=== PATIENT | female | born 1950 | race Caucasian/White ===

== ENCOUNTER 2016-07-06 16:10 | Emergency (ER) | payer MEDICARE, OTHER ==
--- NOTE | 2016-07-06 16:31 | ED Physician Documentation ---
Upper Respiratory Symptoms - HISTORIAN Historian: patient - HPI Stated Complaint: Cough/Congestion Chief Complaint: Cough/ Upper Respiratory Onset: days ago (4 days) Duration: constant Associated Symptoms: runny nose. denies: fever, chills, sore throat Worsened by Deep Breath: Yes - ROS CONST/EYES: denies: weakness GI/: nausea, diarrhea (off and on). denies: problems urinating, vomiting - PAST HX Lung Disease: other (sleep apnea) PE Risk Factors: none Allergies/Adverse Reactions: Allergies Allergy/AdvReac Type Severity Reaction Status Date / Time Sulfa (Sulfonamide Allergy Verified 07/06/16 16:20 Antibiotics) Home Medications: Ambulatory Orders Medication Instructions Recorded Amoxicillin/Potassium Clav 1 each PO BID #20 tablet 07/06/16 [Augmentin 875-125 Tablet] Letrozole [Femara] 2.5 mg PO D 07/06/16 Lisinopril/Hydrochlorothiazide 1 tab PO D 07/06/16 [Zestoretic] - SOCIAL HX Smoking History: non-smoker Alcohol Use: none Drug Use: none - FAMILY HX Family History: no significant history - VITAL SIGNS Vital Signs: Vital Signs Temp Pulse Resp BP Pulse Ox 98 F 88 24 172/78 94 07/06/16 16:10 07/06/16 16:10 07/06/16 16:10 07/06/16 16:10 07/06/16 16:10 - REVIEWED ASSESSMENTS Nursing Assessment Reviewed: Yes Vitals Reviewed: Yes Progress - Progress Progress: 18:00 Post breathing treatment was moving air better and felt less SOB ED Results Lab/Radiology - Lab Results Lab Results: Lab Results 07/06/16 07/06/16 17:11 17:11 WBC 5.00 K/ul K/ul (4.00-12.00) RBC 3.96 M/ul M/ul (3.90-5.20) Hgb 12.1 g/dL g/dL (12.0-16.0) Hct 37.5 % % (34.5-46.5) MCV 94.6 fl fl (80.0-100.0) MCH 30.5 pg pg (28.0-34.0) MCHC 32.2 g/dL g/dL (30.0-36.0) RDW 14.6 % H % (11.3-14.3) Plt Count 132 K/mm3 K/mm3 (130-400) Neut % (Auto) 75.7 % % (39.0-79.0) Lymph % (Auto) 10.5 % L % (16.0-50.0) [place] % (Auto) 5.8 % % (0.0-11.0) Eos % (Auto) 4.9 % % (0.0-6.8) Baso % (Auto) 0.4 (0.0-1.5) Neut # 3.8 # k/uL # k/uL (1.4-7.7) Lymph # 0.5 # k/uL L # k/uL (0.6-4.0) [place] # 0.3 # k/uL # k/uL (0.0-0.9) Eos # 0.2 # k/uL # k/uL (0.0-0.6) Baso # 0.0 # k/uL # k/uL (0.0-0.5) Reactive Lymphs % 2.8 % % (0.0-5.0) Reactive Lymphs # 0.1 # k/uL # k/uL (0.0-0.8) Sodium 140 mmol/L mmol/L (136-145) Potassium 4.4 mmol/L mmol/L (3.5-5.0) Chloride 102 mmol/L mmol/L (98-110) Carbon Dioxide 34 mmol/L H mmol/L (20-32) BUN 17 mg/dL mg/dL (10-26) Creatinine 0.5 mg/dL mg/dL (0.4-1.5) Estimated Creat Clear 257 Est GFR ( Amer) > 60 (60 - ) Est GFR (Non-Af Amer) > 60 (60 - ) Glucose 96 mg/dL mg/dL (70-99) Calcium 11.2 mg/dL H mg/dL (8.5-10.5) Total Bilirubin 0.4 mg/dL mg/dL (0.2-1.2) AST 28 U/L U/L (0-41) ALT 31 U/L U/L (0-45) Alkaline Phosphatase 69 U/L U/L (46-116) Total Protein 6.9 g/dL g/dL (6.0-8.5) Albumin 4.5 g/dL g/dL (3.0-5.5) - Radiology Radiology Impressions: CXR: no acute findings, no infiltrates noted. - Orders Orders: ED Orders Category Date Time Status Place Saline Lock/IV Now Care 07/06/16 16:41 Inactive CHEST P.A.&LAT 2 VIEWS [RAD] Routine Exams 07/06/16 Completed CBC/PLATELET/DIFF Routine Lab 07/06/16 17:11 Completed CMP Routine Lab 07/06/16 17:11 Completed Ipratropium/Albuterol Sulfate [Duoneb] Med 07/06/16 17:48 Discontinued 3 ml NEB .STK-MED ONE Ipratropium/Albuterol Sulfate [Duoneb] Med 07/06/16 17:47 Discontinued 3 ml NEB NOW ONE Upper Respiratory Symptoms - EXAM General Appearance: no acute distress, alert EENT: eyes nml inspection, nml ENT inspection, nose nml. No: pharyngeal erythema Neck: normal inspection, thyroid normal, supple. No: lymphadenopathy, stiff neck Respiratory: no resp. distress, speaks full sentences, rales (R>L), rhonchi ( few on the right middle) CVS: reg rate & rhythm, heart sounds normal, equal pulses, no murmur Skin: color nml, no rash, warm,dry, cyanosis Neuro/Psych: oriented x3, neuro intact, mood/affect nml Discharge Clincal Impression: Bronchitis Referrals: Keyona Egan FNP [Primary Care Provider] - 2 Days Additional Instructions: Take the Augmentin as directed, take with food. Do nebulized treatment every 4- 6 hours as needed. Watch for fever or chills. If you continue to have problems to return to your primary care provider or to the ED. Home Medications: Ambulatory Orders Amoxicillin/Potassium Clav [Augmentin 875-125 Tablet] 1 each PO BID #20 tablet 07/06/16 Letrozole [Femara] 2.5 mg PO D 07/06/16 Lisinopril/Hydrochlorothiazide [Zestoretic] 1 tab PO D 07/06/16 Condition: Stable Disposition: 01 HOME, SELF-CARE Decision to Admit: NO Date of Decison to Admit: 07/06/16 Decision Time: 17:45
[2016-07-06 17:19] LABS: BASOPHILS % 0.4 (0.0-1.5); EOSINOPHILS % 4.9 % (0.0-6.8); LYMPHOCYTES # 0.5 # k/uL (0.6-4.0); MEAN CORPUSCULAR HEMOGLOBIN 30.5 pg (28.0-34.0); MONOCYTES # 0.3 # k/uL (0.0-0.9); MONOCYTES % 5.8 % (0.0-11.0); NEUTROPHILS # 3.8 # k/uL (1.4-7.7)
[2016-07-06 17:31] LABS: eGFR (African) > 60; eGFR (Non-African) > 60
--- NOTE | 2016-07-06 17:41 | Diagnostic Imaging Report ---
CELIA CRUZ~ [facility] [address] [facility] [address] [place] [address]. 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 Aortic atherosclerosis is present. There is no infiltrate or pleural effusion. Impression: Breast implants and upper normal heart size. ~ Electronically signed on Jul 06, 2016 5:34:25 PM ENGRAVING PRESS OPERATOR by: Todd MIRANDA
[2016-07-06] MEDS ORDERED: IPRATROPIUM/ALBUTEROL SULFATE 3 ML AMPUL.NEB NEB ONE ×2 (17:47→17:48)
[2016-07-06] MEDS ORDERED: methylPREDNISolone SOD SUCC 125 MG/2 ML VIAL IM ONE (18:04)
[2016-07-06 18:30] VITALS: BP 167/93
== END 2016-07-06 18:20 | disposition home or self-care (01) ==
LOC: ED 16:10
DX: J20.9 Acute bronchitis, unspecified (principal)
CPT/HCPCS: 71020; 80053; 85025; J2930; 99283

== ENCOUNTER 2019-03-20 11:07 | Emergency (ER) | payer MEDICARE, OTHER ==
[2019-03-20] MEDS: IPRATROPIUM/ALBUTEROL SULFATE 3 ML AMPUL.NEB NEB ONE (11:35)
[2019-03-20 11:40] VITALS: BP 115/77
--- NOTE | 2019-03-20 11:56 | Diagnostic Imaging Report ---
PATIENT MR#: [id number] PATIENT PATIENT NAME: SHAHRIAR MONTGOMERY DATE OF : 1950 REFERRING PHYSICIAN: Dina Barfield EXAM DATE: 03/20/2019 ACCESSION NUMBER: [id number] EXAM DESCRIPTION: CHEST 2VIEW Exam: Chest two views. History: Cough. The examination is compared to study dated April 05, 2018. Lung benitez are well aerated. Right perihilar and right lower lobe infiltrates are noted. No pleura l effusions are seen. Heart size is stable with atherosclerotic plaques seen in the aorta. Degenerative changes in the thoracic spine are noted. Impression: Right perihilar and right lower lobe infiltrates. Read by: Dr. René Ashton Transcribed by: Transcribed Date: Electronically signed by: Dr. René Ashton Date signed: 03/20/2019 11:55:36 AM
--- NOTE | 2019-03-20 11:59 | ED Physician Documentation ---
Upper Respiratory Symptoms - HISTORIAN Historian: patient - HPI Stated Complaint: SOB Chief Complaint: Cough/ Upper Respiratory Additional Information: 68 year old female presents with to ER. Patient c/o cough, congestion, SOA, and wheezing that started a week ago yesterday. She was seen 6 days ago at Urgent care and started on Augmentin. She has been doing as instructed but states that symptoms are getting worse. She was having a lot of trouble breathing last night. states that he can hear her wheezing. She has a nebulizer at home but has not really been using it. Discussed using nebulizer every 4 hours x 24 hours. Onset: days ago ( 1 week ago) Duration: constant Context: denies: recent foreign travel Severity: moderate Associated Symptoms: sinus drainage, productive cough, shortness of breath Worsened by Deep Breath: Yes - ROS CONST/EYES: denies: weakness CVS/RESP: shortness of breath LYMPH: denies: leg swelling, swollen glands GI/: none NEURO/PSYCH: denies: dizziness MS/SKIN: denies: joint pain - PAST HX Lung Disease: asthma PE Risk Factors: hypertension Immunizations: UTD Allergies/Adverse Reactions: Allergies Allergy/AdvReac Type Severity Reaction Status Date / Time Sulfa (Sulfonamide Allergy Verified 03/20/19 11:47 Antibiotics) Home Medications: Ambulatory Orders Medication Instructions Recorded Letrozole [Femara] 2.5 mg PO D 07/06/16 Lisinopril/Hydrochlorothiazide 1 tab PO D 07/06/16 [Zestoretic] Meloxicam 15 mg PO D 04/05/18 Albuterol Sulfate [Albuterol 1 - 2 puff IH Q4H PRN #1 hfa.aer.ad 03/20/19 Sulfate Hfa] Ipratropium/Albuterol Sulfate 3 ml NEB Q4H #1 b 03/20/19 [Duoneb] LevoFLOXacin [Levaquin] 500 mg PO DAILY #10 tablet 03/20/19 predniSONE [Deltasone] 40 mg PO DAILY #10 tablet 03/20/19 - SOCIAL HX Smoking History: non-smoker Alcohol Use: none Drug Use: none - FAMILY HX Family History: none - VITAL SIGNS Vital Signs: Vital Signs Temp Pulse Resp BP Pulse Ox 97.4 F L 58 L 20 115/77 95 03/20/19 11:07 03/20/19 11:07 03/20/19 11:07 03/20/19 11:07 03/20/19 11:07 - REVIEWED ASSESSMENTS Nursing Assessment Reviewed: Yes Vitals Reviewed: Yes Progress - Progress Progress: Patient sounds much better after breathing treatment; still some wheezing noted. ED Results Lab/Radiology - Radiology Radiology Impressions: Exam: Chest two views. History: Cough. The examination is compared to study dated April 05, 2018. Lung benitez are well aerated. Right perihilar and right lower lobe infiltrates are noted. No pleural effusions are seen. Heart size is stable with atherosclerotic plaques seen in the aorta. Degenerative changes in the thoracic spine are noted. Impression: Right perihilar and right lower lobe infiltrates. Electronically signed on Mar 20, 2019 11:52:47 AM OPTICAL MANUFACTURING TECHNICIAN by: René Herrera - Orders Orders: ED Orders Category Date Time Status CHEST 2VIEW [RAD] Stat Exams 03/20/19 Completed Ipratropium/Albuterol Sulfate [Duoneb] Med 03/20/19 11:26 Discontinued 3 ml NEB NOW ONE Upper Respiratory Symptoms - EXAM General Appearance: alert, mild distress EENT: eyes nml inspection, nml ENT inspection, lids & conjunct. nml, PERRL Neck: normal inspection, supple Respiratory: wheezes, rhonchi Abdomen: non-tender, nml bowel sounds CVS: heart sounds normal, equal pulses Skin: color nml, no rash, warm,dry Extremities: normal range of motion Neuro/Psych: oriented x3, neuro intact, mood/affect nml Discharge Clincal Impression: Right lower lobe pulmonary infiltrate Referrals: Keyona Egan FNP [Primary Care Provider] - 2 Days Additional Instructions: Finish taking Augmentin Start Levaquin 500mg daily today Take prednisone 40 mg daily for 5 days Carry albuterol inhaler with you and inhale 1-2 puffs every 4 hours as needed for shortness of breath/wheezing Use Duoneb (nebulizer machine) every 4 hours for 24 hours and then every 4 hours as needed for shortness of breath/wheezing Follow up with PCP in 7 days for re-evaluation Condition: Good Disposition: 01 HOME, SELF-CARE Decision to Admit: NO Decision Time: 12:06
== END 2019-03-20 12:12 | disposition home or self-care (01) ==
LOC: ED 11:07
DX: R91.8 Other nonspecific abnormal finding of lung field (principal)
CPT/HCPCS: 71046; 94640; 99282; 99284

== ENCOUNTER 2019-03-30 09:22 | Outpatient (CLI) | payer MEDICARE, OTHER ==
--- NOTE | 2019-03-30 13:10 | Diagnostic Imaging Report ---
PATIENT MR#: [id number] PATIENT PATIENT NAME: SHAHRIAR MONTGOMERY DATE OF : 1950 REFERRING PHYSICIAN: Keyona Egan EXAM DATE: 03/30/2019 ACCESSION NUMBER: [id number] EXAM DESCRIPTION: CHEST 2VIEW HISTORY: BRONCHITIS X 2 WEEKS AGO; EMERGENCY DEPT DX HER W/ PNUEMONIA ON 03/20/19; SOA HAS GOTTEN WORS E OVER THE LAST 2 WEEKS COMPARISON: March 20, 2019. CHEST RADIOGRAPH, FRONTAL AND LATERAL: Upper mediastinum: Not widened. Heart: Mild cardiomegaly, stable. Lungs: Compared to the exam 10 days previously, there has been interval improvement in the degree of atelectasis/infiltrate in the right lower lobe on frontal view. However, there has been interval appe arance of scant right pleural effusion demonstrated as posterior costophrenic bunting on the lateral view. Skeleton: Mild thoracic spondylosis. IMPRESSION: 1. Interval improvement of right lower lobe atelectasis/infiltrate. 2. Interval development of scant right posterior plural effusion. Read by: Dr. Pablo Hopper Transcribed by: Pablo Hopper Transcribed Date: 03/30/2019 1:09:11 PM Electronically signed by: Dr. Pablo Hopper Date signed: 03/30/2019 1:10:04 PM
== END 2019-03-30 09:40 ==
LOC: RAD 09:22
PROVIDERS: ATTEND Nurse Practitioner Family
DX: R05 Cough (principal); R06.02 Shortness of breath; R06.2 Wheezing
CPT/HCPCS: 71046